=== PATIENT | male | born 1980 | race African-American/Black ===

== ENCOUNTER 2020-05-25 18:16 | Emergency (ER) | payer BC, SELFPAY ==
[2020-05-25 18:18] VITALS: BP 147/81; PULSE 104; RESP 18; TEMP 36.2; O2SAT 100
--- NOTE | 2020-05-25 18:42 | ED.EXTPRO ---
HPI - Extremity Problem General Chief complaint: Extremity Problem,Nontraumatic Stated complaint: legs numb after endoscopy Time Seen by Provider: 05/25/20 18:29 History of Present Illness HPI Narrative: Patient presents with his for bilateral posterior leg pain. [place] the park and had upper endoscopy. He was seated in a reclining position on a hospital bed, for the procedure and woke up in the same position. He was sedated for the procedure. Then they went home, napped, and when he woke up he had bilateral posterior leg pain with cramping. He is able to walk. There is no weakness. Sensation intact. Medically he has hypertension. 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 Does not smoke drink or do drugs. Complaint: extremity pain Onset (ago): hour(s) Pain Consistency: intermittent Location: left and right Severity scale (1-10): 6 Quality: stabbing Relieving factors: immobilization and other (Sitting up) Exacerbating factors: other (Laying flat) Associated symptoms: denies other symptoms Related Data Allergies Allergy/AdvReac Type Severity Reaction Status Date / Time lisinopril Allergy Mild Cough Verified 05/25/20 18:28 Review of Systems Review of Systems: Narrative: CONSTITUTIONAL: Denies fever, chills, or sweats. EYES: Denies visual changes, redness, or discharge. ENT: Denies rhinorrhea, congestion, sore throat, or otalgia. CARDIOVASCULAR: Denies chest pain, palpitations, or edema. RESPIRATORY: Denies cough or dyspnea. GASTROINTESTINAL: Denies abdominal pain, nausea, vomiting, or diarrhea. GENITOURINARY: Denies dysuria or hematuria. SKIN: Denies rash or itching. MUSCULOSKELETAL: Denies back pain, joint pain, but has muscle aching the back of both legs. NEUROLOGIC: Denies headache, numbness, or weakness. PSYCHIATRIC: Denies anxiety or depression. COUNTS INCLUDE 234 BEDS AT THE [facility] Past Medical History Medical History (Updated 05/25/20 @ 18:42 by Alysha Sesay MD) Essential (primary) hypertension Obesity Surgical History Surgical History History of circumcision No pertinent past surgical history Social History Social History Smoking status: Never smoker Second hand tobacco smoke exposure: No Alcohol intake: never Substance use: never Substance use type: does not use Gender identity (if verbalized by the patient): Male Exam Narrative: Exam Narrative: GENERAL: Well-appearing, well-nourished, and in no acute distress. Morbid obesity. HEAD: Normocephalic, atraumatic. EYES: PERRLA and EOMI. ENT: Nares clear, no rhinorrhea or epistaxis. Mucous membranes moist. NECK: Supple. CHEST: Clear to auscultation. No respiratory distress. HEART: Regular rate and rhythm. No murmur heard. Normal peripheral pulses. ABDOMEN: Soft, nontender, nondistended, normal active bowel sounds. EXTREMITIES: Normal range of motion. No edema. SKIN: Warm, dry, no rash. NEURO: No focal deficits. Alert and oriented x3. Able to easily walk across the room. PSYCH: Normal mood and affect. Const: General: no acute distress and alert Orientation/consciousness: patient oriented x3 Course Vital Signs Vital signs: Vital Signs Temperature 97.1 F L 05/25/20 18:18 Pulse Rate 104 H 05/25/20 18:18 Respiratory Rate 18 05/25/20 18:18 Blood Pressure 147/81 H 05/25/20 18:18 Pulse Oximetry 100 05/25/20 18:18 Temperature 97.1 F L 05/25/20 18:18 Pulse Rate 104 H 05/25/20 18:18 Respiratory Rate 18 05/25/20 18:18 Blood Pressure 147/81 H 05/25/20 18:18 Pulse Oximetry 100 05/25/20 18:18 MDM - Extremity (Nontraumatic) Medical Records Attestation: I reviewed the patient's medical records. Discharge Plan Discharge Clinical Impression: Hamstring strain Qualifiers: Encounter type: initial encounter Laterality: unspecified laterality Qualified Code(s): S76.319A - Strain of muscle, fascia and tendon of the po
[2020-05-25] MEDS: oxyCODONE/ACETAMINOPHEN 5-325 MG TABLET 1 TABLET PO (18:44)
== END 2020-05-25 19:07 | disposition home or self-care (01) ==
PROVIDERS: Emergency Provider Emergency Medicine; PCP Family Medicine
DX: S76.319A Strain of muscle, fascia and tendon of the posterior muscle group at thigh level, unspecified thigh, initial encounter (principal); I10 Essential (primary) hypertension; E66.01 Morbid (severe) obesity due to excess calories; X58.XXXA Exposure to other specified factors, initial encounter; Z98.890 Other specified postprocedural states
CPT/HCPCS: 99283; A9270

== ENCOUNTER → 2021-07-13 11:39 | Outpatient (CLI) | payer OTHER, SELFPAY ==
--- NOTE | ~2021-07-13 | XR_ITS ---
EXAMINATION: XR chest 2V 07/13/2021 11:51 INDICATION: Pneumonitis. Vomiting. PROCEDURE: 2 view chest COMPARISON: No prior studies for comparison. FINDINGS: The lungs are clear. The cardiomediastinal silhouette is within normal limits. There are no pleural effusions. There is no pneumothorax suspected. IMPRESSION: 1: NO ACUTE CARDIOPULMONARY DISEASE. Reviewed, dictated and finalized at location A.
== END ==
PROVIDERS: PCP Family Medicine; Visit Provider Family Medicine
DX: J69.0 Pneumonitis due to inhalation of food and vomit (principal)
CPT/HCPCS: 71046

== ENCOUNTER 2023-06-06 10:01 | Outpatient (CLI) | payer OTHER, SELFPAY ==
[2023-06-06 19:34] LABS: Basophils Percent Auto 0.6 % (0.2-1.2); Eosinophils Absolute Auto 0.1 K/mm3 (0-0.3); Eosinophils Percent Auto 1.5 % (0-4.4); Hematocrit 39.6 % (42.0-52.0); Hemoglobin 13.1 g/dL (14.0-18.0); Immature Granulocyte Absolute 0.02 K/mm3 (0.00-0.031); Immature Granulocyte Percent A 0.3 % (0-0.5); Lymphocytes Absolute Auto 2.39 K/mm3 (0.9-3.2); Lymphocytes Percent Auto 36.5 % (18.3-44.2); Mean Corpuscular HGB Conc 33.1 g/dl (32-36); Mean Corpuscular Volume 93.8 fl (80-100); Mean Platelet Volume 11.5 fl (7.4-10.4); Monocytes Absolute Auto 0.5 K/mm3 (0.1-0.6); Monocytes Percent Auto 7.8 % (2.6-8.5); Neutrophils Absolute Auto 3.5 K/mm3 (1.3-6.7); Neutrophils Percent Auto 53.3 % (45.5-73.1); Platelet Count Result 193 k/mm3 (150-375); Red Blood Count 4.22 M/mm3 (4.6-6.20); Red Cell Distribution Width 12.1 % (11.5-14.5); White Blood Count 6.6 K/mm3 (4.5-10.0)
[2023-06-06 19:54] LABS: Alanine Aminotransferase 41 U/L (6-50); Albumin Level 3.7 g/dL (3.5-5.1); Alkaline Phosphatase 107 U/L (38-126); Anion Gap 6 mmol/L (8-16); Aspartate Amino Transferase 41 U/L (17-59); Bilirubin,Total 0.5 mg/dL (0.2-1.3); Blood Urea Nitrogen 12 mg/dL (9-20); Calcium 8.5 mg/dL (8.4-10.2); Carbon Dioxide 28 mmol/L (22-30); Chloride 106 mmol/L (98-107); Cholesterol 153 mg/dL (0-200); Estimated Glomerular Filt Rate > 60; Glucose 83 mg/dL (65-110); HDL Direct 58 mg/dL; Potassium 3.3 mmol/L (3.4-5.0); Sodium 140 mmol/L (137-145); Triglycerides 56 mg/dL (<150)
[2023-06-06 20:04] LABS: LDL Cholesterol Direct 70 mg/dL
[2023-06-06 21:09] LABS: Vitamin D 25 Hydroxy < 12.8 ng/mL
== END 2023-06-06 10:02 | disposition home or self-care (01) ==
LOC: ANHGOSHLAB 10:03
PROVIDERS: PCP Family Medicine; Visit Provider Nurse Practitioner Family
DX: Z00.00 Encounter for general adult medical examination without abnormal findings (principal); I10 Essential (primary) hypertension
CPT/HCPCS: 36415; 80053; 80061; 82306; 84443; 85025